=== PATIENT | female | born 1960 | race Caucasian/White ===

== ENCOUNTER 2018-10-08 09:04 | Inpatient (IN) | payer OTHER ==
[~2018-10-08] VITALS: Ht 157.5 cm; Wt 50.1 kg
[2018-10-08 09:34] VITALS: BP 109/61
[2018-10-08 10:06] LABS: HEMATOCRIT 42.2 % (37.0-47.0); MCH 29.4 pg (26.0-34.0); MCHC 33.1 g/dL (28.0-37.0); MCV 88.6 fL (80.0-100.0); RBC 4.76 mil/uL (4.20-5.00); RDW 13.9 % (10.5-14.5); WBC 28.8 thou/uL (4.0-11.0)
[2018-10-08 10:15] LABS: ALBUMIN 2.3 g/dL (3.4-5.0); CALCIUM 8.9 mg/dL (8.5-10.1); CREATININE 0.7 mg/dL (0.6-1.0); TOTAL BILIRUBIN 0.5 mg/dL (<0.1-1.0); TOTAL PROTEIN 7.1 g/dL (6.4-8.2)
[2018-10-08 10:18] LABS: POTASSIUM 2.9 mmol/L (3.5-5.1)
--- NOTE | 2018-10-08 10:29 | NUR ---
LAB CALLED CRITICAL POTASSIUM 2.9. PHYSICIAN NOTIFIED.
--- NOTE | 2018-10-08 10:29 | NUR ---
PT ARRIVED TO ROOM AT 0930 DIRECT ADMIT FROM CLINIC. ADMISSION HISTORY AND ASSESSMENT COMPLETED. A&O,X4. C/O SOA, COUGH, WEAKNESS. [address], NO OXYGEN USE AT HOME. CRACKLES LEFT, CLEAR/DIM RIGHT LUNG SOUNDS. ACTIVE BOWEL SOUNDS, LBM YESTERDAY. SKIN INTACT. WILL CONTINUE TO MONITOR.
[2018-10-08] MEDS ORDERED: NORVASC5 MG PO (11:09)
[2018-10-08] MEDS ORDERED: CENTRUM SILVER1 EAC4 PO (11:11)
--- NOTE | 2018-10-08 13:01 | NUR ---
ASSESSMENT-PT LIVES AT HOME WITH HER . SHE WALKS ON HER OWN AND DOES HER OWN ADLS. PT DRIVES. DTR AND GRANDSON AT THE BEDSIDE. PT USES NO DME ND HAS NOT HAD ANY HH SERVICES. PT CURRENTLY ON OXYGEN. FOLLOWING TO ASSIST WITH DC PLANNING.
[2018-10-08 17:45] VITALS: BP 112/56
--- NOTE | 2018-10-08 19:31 | NUR ---
END OF SHIFT. PT IN STABLE CONDITION. FAMILY AT BEDSIDE. POTASSIUM WLN AFTER ELECTROLYTE PROTOCOL.
[2018-10-08 20:00] VITALS: BP 112/53
[2018-10-09 03:55] VITALS: BP 101/69
--- NOTE | 2018-10-09 04:00 | NUR ---
ASSUMED PT CARE 1899. PT ALERT AND ORIENTED. REASSESSMENT COMPLETE. PT DENIES PAIN, AND N/V AT THIS TIME. PT ON 2L OXYGEN, VSS. IV DRESSING C/D/I, NO SIGNS OF INFILTRATION. WILL CONTINUE POC UNTIL EOS.
[2018-10-09 04:26] LABS: HEMATOCRIT 35.5 % (37.0-47.0); MCHC 32.8 g/dL (28.0-37.0); MCV 88.5 fL (80.0-100.0); RBC 4.01 mil/uL (4.20-5.00); RDW 13.8 % (10.5-14.5); WBC 16.2 thou/uL (4.0-11.0)
[2018-10-09 04:28] LABS: HEMOGLOBIN 11.6 gm/dL (12.0-15.0)
[2018-10-09 04:36] LABS: CALCIUM 7.7 mg/dL (8.5-10.1); CREATININE 0.4 mg/dL (0.6-1.0); POTASSIUM 3.7 mmol/L (3.5-5.1)
[2018-10-09 07:40] VITALS: BP 123/60
--- NOTE | 2018-10-09 10:07 | NUR ---
ASSUMED CARE OF PT AT 0700. ASSESSMENT COMPLETED. A&O,X4. C/O COUGH, SOA, WEAKNESS. DENIES PAIN, CHEST DISCOMFORT FROM COUGHING AT TIMES, NO PAIN MEDS REQUESTED. 2 L NC. LEFT LUNG CRACKLES/DIM, RIGHT CLEAR/DIM. REGULAR HEART SOUNDS, HX HTN - LOW BP NOTED. BP MEDS HELD, PHYSICIAN AWARE. ACTIVE BOWEL SOUNDS, BRP. SKIN INTACT. WILL CONTINUE TO MONITOR.
--- NOTE | 2018-10-09 14:47 | HC ---
[facility] [place] [address] CONSULTATION Name: RAHEEM ANDREWS Room #: 422-P ADM IN M.R.#: [id number] Admission: 10/08/18 ������������������ Attend Phys: Demarcus Chen MD Discharge: ������������������ Date of : 60 Report #: [id number] THIS REPORT FOR: //name// CC: Demarcus Chen DATE OF SERVICE: 10/08/2018 REFERRING PHYSICIAN: Dr. Chen. REASON FOR REFERRAL: Pneumonia. HISTORY OF PRESENT ILLNESS: The patient is a 58-year-old white female who was admitted with a left-sided infiltrate. She was felt to have pneumonia. A pulmonary consultation was requested. The patient states that she was in her usual state of health until about a week and a half ago when she developed flu-like symptoms. She was given Tamiflu. Symptoms did not improve completely. About 2 days ago, she started noticing increasing dyspnea. Chest x-ray performed in the outpatient setting revealed moderate left-sided infiltrates. The patient was admitted. She also notes pleuritic type chest pain. She denies any productive cough, but she is unable to cough deeply due to pain. She has smoked for many years, but quit February of last year. She has no known chronic lung disease. PAST MEDICAL HISTORY: Notable for hypertension. PAST SURGICAL HISTORY: Include carpal tunnel surgeries in the past. ALLERGIES: None to medications. HOME MEDICATIONS: Include Norvasc, multivitamins. FAMILY HISTORY: Notable for YESENIA, hypertension in father. Mother has osteoporosis. SOCIAL HISTORY: Tobacco history as mentioned above. She drinks socially. 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 She is . She has children. REVIEW OF SYSTEMS: As mentioned above, otherwise 10-point system was negative. PHYSICAL EXAMINATION: GENERAL: She is awake, alert, appears mildly dyspneic. [facility] [address] [place] [address] CONSULTATION Name: RAHEEM ANDREWS Room #: 422-P [facility] IN ..#: [id number] Admission: 10/08/18 ������������������ Attend Phys: Demarcus Chen MD Discharge: ������������������ Date of : 60 Report #: [id number] VITAL SIGNS: Temperature is 97.3 degrees Fahrenheit, pulse 104, respiratory rate is 16, blood pressure 109/61 mmHg, saturation 94%. HEENT: Normocephalic, atraumatic. NECK: Supple, without lymphadenopathy or thyromegaly. CHEST: Breath sounds are moderate with crackles in the left lung field. No wheezes. CARDIOVASCULAR: Normal S1, S2. No murmurs or gallop. There is no JVD. There is no carotid bruit. Pulses are 2+/4+ bilaterally. ABDOMEN: Soft, nontender, no organomegaly or masses felt. GENITOURINARY: Deferred. RECTAL: Deferred. EXTREMITIES: There is no edema, cyanosis or clubbing. LABORATORY DATA: Chest x-ray as mentioned above showing moderate left upper lobe infiltrate with some suggestion of left lower lobe infiltrate. Followup chest x-ray will be ordered. Electrolytes: Sodium 129, potassium 2.9, CO2 is 90, bicarbonate is 23, BUN is 18, creatinine 0.7. Liver enzymes are mildly abnormal. WBC 20,800, hemoglobin 14.0, platelets mildly elevated. Albumin 2.3. IMPRESSION: 1. Left upper lobe infiltrates in this 58-year-old white female. Suspect community acquired pneumonia. Cannot rule out atypical pneumonia given the symptoms started more than a week ago with a viral syndrome. 2. History of tobacco use without a history of chronic lung disease. 3. Severe protein-calorie malnutrition, albumin 2.3. 4. Hyponatremia, hypokalemia due to pulmonary process. 5. Hypertension. RECOMMENDATION AND DISCUSSION: I agree with the broad-spectrum antibiotics. Bronchodilators given history of tobacco use. Wean O2 for saturation 90%. I discussed the above findings with the patient and her son. It is a possibility that her clinical status may deteriorate before she gets better. They voiced understanding. Follow up chest x-ray in the morning. DVT and GI prophylaxis recommended. Thank you for this consultation. ��������������������������������������������� <ELECTRONICALLY SIGNED> ���������������������������������������� By: Gabo Cochran MD ��������������������������������������������� 10/09/18 [id number] Gabo Cochran MD /nt
[2018-10-09 20:05] VITALS: BP 134/54
[2018-10-10] VITALS: BP 120/75
[2018-10-10 03:35] VITALS: BP 120/58
[2018-10-10 04:15] LABS: HEMATOCRIT 35.4 % (37.0-47.0); HEMOGLOBIN 11.7 gm/dL (12.0-15.0); MCH 29.6 pg (26.0-34.0); MCHC 33.2 g/dL (28.0-37.0); RBC 3.97 mil/uL (4.20-5.00); RDW 13.9 % (10.5-14.5); WBC 14.4 thou/uL (4.0-11.0)
[2018-10-10 04:21] LABS: CALCIUM 8.1 mg/dL (8.5-10.1); CREATININE 0.5 mg/dL (0.6-1.0)
--- NOTE | 2018-10-10 06:03 | NUR ---
PT AMBULATING IN ROOM INDEPENDENTLY AND IS TOLERATING FAIR. DENIES NEED FOR PAIN MEDICATION. RESTING COMFORTABLY. NO NEEDS VOICED. CALL LIGHT WITHIN REACH. WILL CONTINUE TO PROVIDE FREQUENT OBSERVATION.
[2018-10-10 08:43] VITALS: BP 146/82
[2018-10-10 09:52] VITALS: BP 127/65
--- NOTE | 2018-10-10 12:39 | NUR ---
ASSUMED CARE OF PATIENT THIS MORNING. PATIENT IS A&OX4. SHE IS UP AD ASMITA. PATIENT DOES NOT COMPLAIN OF ANY PAIN. SHE WEARS 4L OF OXYGEN HERE IN THE HOSPITAL. PATIENT WAS NOT ON ANY OXYGEN PREVIOUSLY AT HOME. PATIENT WILL POSSIBLY BE DISCHARGED TOMORROW. THE PHYSICIAN WANTS TO MONITOR HER OXYGEN SATURATION. PATIENT WAS TRANSFERRED TO [facility] THIS MORNING AT 0800 REPORTED GIVEN BY NURSE MAXIMUS. PATIENT SETTLED IN ROOM AND FLUIDS WERE RESUMED. PATIENT WAS ASSESSED NO ABNORMAL FINDINGS. SHE IS CURRENTLY RESTING IN HER ROOM AND HER IS VISITING. PATIENT HAS CALL LIGHT WITHIN REACH, AND WILL CALL OUT FOR ANY NEEDED ASSISTANCE.
[2018-10-10 19:00] VITALS: BP 114/59
--- NOTE | 2018-10-10 19:58 | NUR ---
I AGREE WITH NURSING ASSESSMENT DONE BY TIFFANIE/JADEN.
--- NOTE | 2018-10-11 03:12 | NUR ---
PATIENT ALERT AND ORIENTED X4. COOPERATIVE WITH CARE. UP ADLIB IN ROOM. IVF INFUSING W/O COMPLICATION. 4LNC WITH SOME SOB WITH EXERTION. PATIENT WILL HAVE A CXR TO FOLLOW-UP WITH PNEUMONIA. NO C/O PAIN AT TIME OF NOTE. WILL MONITOR. RESTING QUIETLY.
[2018-10-11 07:04] LABS: HEMATOCRIT 34.7 % (37.0-47.0); HEMOGLOBIN 11.5 gm/dL (12.0-15.0); MCH 28.9 pg (26.0-34.0); MCV 87.5 fL (80.0-100.0); RBC 3.97 mil/uL (4.20-5.00); WBC 11.3 thou/uL (4.0-11.0)
[2018-10-11 07:11] LABS: CALCIUM 8.2 mg/dL (8.5-10.1); CREATININE 0.4 mg/dL (0.6-1.0); POTASSIUM 4.1 mmol/L (3.5-5.1)
[2018-10-11 07:35] VITALS: BP 126/72
--- NOTE | 2018-10-11 09:54 | NUR ---
ASSUMED PATIENT AND CARES AT 0715, SITTING UP WITH LEGS CROSSED IN BED, A&OX4, DENIES PAIN OR DISCOMFORT, STATES BODY IS SORE FROM DECREASED MOVEMENT, O2@4L/NC, LEFT FOREARM IV INTACT AND PATENT WITH NS@80 ML/HR INFUSING, RT ENTERED ROOM FOR TREATMENT, PERSONAL BELONGINGS AND CALL LIGHT IN REACH, WILL CONTINUE TO MONITOR
--- NOTE | 2018-10-11 10:02 | NUR ---
CARLOS EDUARDO reviewed chart and spoke with nursing and attending physician. Pt was transferred to [facility] and is progressing towards goals for discharge. Discharge home is anticipated in 1-2 days. Pt remains on 4L of continuous O2. Pt does qualify for home O2 based on rest/exercise oximetry completed yesterday. CARLOS EDUARDO met with pt at bedside to discuss possible home O2. Pt verbalized understanding and is aware of potential need for home O2. DME options provided. No preference voiced. CARLOS EDUARDO confirmed pt's home address and phone number. Pt's PCP is Dr. Chen. CARLOS EDUARDO notified [employer] liaison, to request insurance to be checked. CARLOS EDUARDO is following to assist as needed with discharge planning.
--- NOTE | 2018-10-11 10:26 | NUR ---
millie sent Jennifer at [facility] a facesheet on patient, patient to dc in 1 to 2 days and will need home oxygen. DP sent message to Jennifer to expect facesheet.
[2018-10-11 19:17] VITALS: BP 120/79
--- NOTE | 2018-10-11 19:32 | NUR ---
I AGREE WITH NURSING ASSESSMENT DONE BY FABIOLA/JADEN.
[2018-10-11 22:09] VITALS: BP 120/79
--- NOTE | 2018-10-12 04:39 | NUR ---
Patient remains A&Ox4; Swallows meds whole w/o difficulty. Remains cont. B&B; ambulates independently w/ steady gait. 02 intact at 4LNC; No sob noted. Last BM 10/11/18, per pt. Blood sugars WNL. Remains on heparin therapy; no s/s of bleeding noted. Remains on IVABT/PNA; no adverse reactions noted. SL noted to [facility]. Infused ABT/fluids w/o difficulty. Breathing txs, as ordered, w/o difficulty. Non - productive cough noted. Patient denies pain or discomfort. No s/s of acute distress noted. PO fluids encouraged. Patient asleep in bed w/ 02 intact and call light/desired belongings within reach. Will continue to monitor.
[2018-10-12 07:17] VITALS: BP 120/66
--- NOTE | 2018-10-12 07:29 | NUR ---
Agree with JADEN Delvalle NURSING ASSESMEN AND DOCUMENTATION FOR THIS SHIFT.
--- NOTE | 2018-10-12 12:12 | NUR ---
ASSUMED CARE OF PATIENT THIS MORNING. PATIENT IS A&OX4. SHE IS CURRENTLY ON 4L OF OXYGEN. SHE GETS SHORT OF AIR ON EXERTION. NOT PREVIOUSLY ON OXYGEN AT HOME. PATIENT WILL GO HOME WITH OXYGEN UPON DISMISSAL. SHE DOES NOT COMPLAIN OF ANY PAIN OR DISCOMFORT. PATIENT'S SOLU-MEDROL WAS DISCONTINUED THIS MORNING. SHE RECEIVES TWO ANTIOBIOTICS ROCEPHIN AND AZITHROMYCIN, TOLERATES WELL. SOME BRUISING AND DISCOMFORT ON BACK OF ARMS FROM HEPARIN INJECTIONS. PATIENT WILL POSSIBLY BE DISCHARGED TODAY OR TOMORROW. SHE IS CURRENTLY SITTING IN BED WITH THE CALL LIGHT WITHIN REACH. SHE CALLS OUT APPROPRIATELY FOR NEEDED ASSISTANCE.
--- NOTE | 2018-10-12 16:17 | NUR ---
CARLOS EDUARDO reviewed chart and spoke with nursing and attending physician. Pt is progressing towards goals for discharge. Pt remains on 4L of O2. Discharge home is anticipated for tomorrow. Rest/exercise oximetry ordered to evaluate pt for home O2 needs. Lynda is following to provide home O2 if needed. CARLOS EDUARDO is following to assist as needed with discharge planning.
[2018-10-12 19:15] VITALS: BP 101/48
--- NOTE | 2018-10-12 19:29 | NUR ---
I AGREE WITH NURSING ASSESSMENT DONE BY TIFFANIE/JADEN.
[2018-10-12 20:41] VITALS: BP 101/48
--- NOTE | 2018-10-13 04:07 | NUR ---
Patient remains A&Ox4; Swallows meds whole w/o difficulty. Remains cont. B&B. Ambulates independently w/ steady gait. 02 intact at 4LNC; No sob noted. Remains on IVABT/PNA; no adverse reactions noted. Non productive cough noted. SL noted to L wrist; infused ABT/fluids/flushed w/o difficulty. Patient remains on heparin therapy; no s/s of bleeding noted. Patient refused HS blood sugar. Patient has no c/o pain or discomfort. No s/s of acute distress noted. Patient asleep in bed w/ call light/desired belongings within reach. PO fluids encouraged. Will continue to monitor.
[2018-10-13 07:04] VITALS: BP 118/68
--- NOTE | 2018-10-13 07:28 | NUR ---
I AGREE WITH THE TRAINS DISPATCHER SUPERVISOR'S ASSESSMENT.
--- NOTE | 2018-10-13 08:00 | NUR ---
ASSUMED CARE OF PATIENT THIS MORNING. PATIENT IS A&OX4. STILL ON 4L 02. WILL ADMINISTER TWO IV ANTIBIOTICS THIS MORNING ROCEPHIN AND AZITHROMYCIN. PATIENT IS NOW RECEIVING ORAL PREDNISONE AND NO LONGER HAS TO GET BLOOD GLUCOSE CHECKED. SHE WILL DISCHARGE HOME LATER TODAY WITH OXYGEN AND A ORDER FOR A NEBULIZER. SHE WILL CONTINUE ORAL ANTIBIOTICS AND ORAL STEROID. PATIENT HAS NOT COMPLAINED OF ANY PAIN. SHE IS CURRENTLY SITTING IN BED WITH CALL LIGHT WITHIN REACH. SHE CALLS OUT APPROPRIATELY FOR ASSISTANCE.
--- NOTE | 2018-10-13 11:17 | NUR ---
millie sent Initial Referral to [facility] for patient. MILLIE let Jennifer know referral was faxed.
[2018-10-13] MEDS ORDERED: CEFDINIR300 MG PO (12:44)
[2018-10-13] MEDS ORDERED: AZITHROMYCIN 2250 MG PO (12:44)
[2018-10-13] MEDS ORDERED: PREDNISONE 10 M10 MG PO (12:45)
[2018-10-13] MEDS ORDERED: ALBUTEROL2.5 MG/0.5 INH (12:45)
[2018-10-13] MEDS ORDERED: OXYGEN MISCELL (12:48)
[2018-10-13] MEDS ORDERED: NEBULIZER MISCELL (12:48)
[2018-10-13 12:54] VITALS: BP 118/68
--- NOTE | 2018-10-13 13:07 | NUR ---
PATIENT WILL BE DISCHARGING HOME TODAY WITH SELF CARE. SHE WILL FOLLOW UP WITH HER PRIMARY PHYSICIAN IN 1 WEEK. SHE WILL GO HOME ON OXYGEN AND HAS A PRESCRIPTION FOR A NEBULIZER, ONE FOR STEROID, TWO FOR ANTIBIOTICS, AND ONE INHALER. DISCHARGE INSTRUCTIONS WILL BE REVIEWED WITH PATIENT. RENEE KANG. PATIENT IS CURRENTLY IN ROOM GETTING DRESSED FOR DISMISSAL.
--- NOTE | 2018-10-13 14:34 | NUR ---
DISCHARGE NOTE: CARLOS EDUARDO reviewed chart and spoke with nursing and attending physician. Pt is medically stable for discharge home today. Pt will need Home O2: 3L at rest and 8L with activity. category planner faxed clinical info to [facility] for review. Portable tank delivered to pt's room. Pt also needs a home nebulizer. CARLOS EDUARDO met with pt and spouse at bedside to discuss discharge plan. Pt and spouse verbalized understanding. Pt's home O2 equipment and nebulizer will be delivered to pt's home later today. Pt will contact Lynda when she lives [facility]. Pt's spouse to provide transportation home. Contact info for Lynda placed in pt's discharge summary. No additional SW needs identified at this time, but is available to assist should needs arise.
--- NOTE | 2018-10-13 15:03 | NUR ---
PATIENT LEFT WITH [facility] AT 1500.
== END 2018-10-13 15:03 | disposition home or self-care (01) | DRG 871 ==
LOC: 4E 09:04 → SICU 09:04 → ENTRNSPT 10-13 14:51 → EDTRNSPTSTS 10-13 14:54 → SICU 10-13 15:03
PROVIDERS: Internal Medicine Pulmonary Disease; ADMIT Family Medicine
DX: A41.9 Sepsis, unspecified organism (principal); J96.01 Acute respiratory failure with hypoxia; E43 Unspecified severe protein-calorie malnutrition; J18.1 Lobar pneumonia, unspecified organism; E87.1 Hypo-osmolality and hyponatremia; I10 Essential (primary) hypertension; E87.6 Hypokalemia; Z68.20 Body mass index [BMI] 20.0-20.9, adult; Z87.891 Personal history of nicotine dependence; Z79.899 Other long term (current) drug therapy; Z82.49 Family history of ischemic heart disease and other diseases of the circulatory system; Z82.62 Family history of osteoporosis
CPT/HCPCS: 10783; 15002